=== PATIENT | female | born 1985 | race Caucasian/White ===

== ENCOUNTER 2017-10-13 15:04 | Emergency (ER) | payer OTHER ==
[~2017-10-13 15:04] MED LIST: PLAQUENIL200 MG PO; PROTONIX 40MG T40 MG PO; SINGULAIR10 MG PO; VENTOLIN H0.09 MG/Ac INH
== END 2017-10-13 15:30 | disposition admitted as inpatient to this hospital (09) ==
LOC: ERH 15:04
DX: R10.9 Unspecified abdominal pain (principal); K62.5 Hemorrhage of anus and rectum